=== PATIENT | female | born 1960 | race African-American/Black ===

== ENCOUNTER 2019-09-27 09:58 | Outpatient (CLI) | payer BC ==
[2019-09-27 12:24] LABS: #Basophils 0.1 thou/uL (0.0-0.2); #Eosinphils 0.1 thou/uL (0.0-0.7); #Monocytes 0.5 thou/uL (0.11-0.59); %Basophils 0.8 % (0.0-1.0); %Eosinophils 1.1 % (0.0-10.0); %Lymphocytes 30.7 % (21.0-51.0); %Monocytes 6.9 % (0.0-10.0); %Neutrophils 60.5 % (42.0-75.0); Hemoglobin 13.4 g/dL (12.0-16.0); Mean Corpuscular HGB CONC 31.2 g/dL (32.0-36.0); Mean Corpuscular Hemoglobin 27.6 pg (27.0-31.0); Mean Corpuscular Volume 88.4 fL (78.0-98.0); Mean Platelet Volume 8.1 fL (7.4-10.4); Platelet Count 339 thou/uL (130-400); RBC Distribution Width 11.7 % (11.5-14.5); Red Blood Cell (RBC) Count 4.84 mill/uL (4.20-5.40); White Blood Cell (WBC) Count 6.6 thou/uL (4.8-10.8)
[2019-09-27 12:49] LABS: ALT (SGPT) 7 U/L (8-55); AST (SGOT) 10 U/L (5-34); Alkaline Phosphatase 110 U/L (40-110); Anion Gap 13 mmol/L (10-20); BUN (Urea Nitrogen) 10 mg/dL (9.8-20.1); Bilirubin, Total 0.4 mg/dL (0.2-1.2); Calc. Creatinine Clearance 0 mL/min (70-130); Calcium 9.6 mg/dL (7.8-10.44); Carbon Dioxide 28 mmol/L (23-31); Chloride 104 mmol/L (98-107); Estimated GFR-MDRD Greater than 90; Globulin 3.3 g/dL (2.4-3.5); Glucose 124 mg/dL (80-115); Potassium 3.9 mmol/L (3.5-5.1); Protein, Total 7.3 g/dL (6.0-8.3); Sodium 141 mmol/L (136-145)
== END 2019-09-27 09:59 | disposition home or self-care (01) ==
LOC: LABBT 09:58
PROVIDERS: ATTEND Surgery
DX: Z01.812 Encounter for preprocedural laboratory examination (principal); K80.20 Calculus of gallbladder without cholecystitis without obstruction
CPT/HCPCS: 80053; 85025

== ENCOUNTER 2019-10-05 06:32 | Inpatient (IN) | payer BC ==
[2019-09-27 10:41] VITALS: BMI 43.6
[2019-10-05] MEDS ORDERED: Fentanyl 100 MCG/2 ML VIAL ONE (07:49)
[2019-10-05] MEDS ORDERED: HYDROmorphone 0.5 MG/0.5 ML SYRINGE ONE (07:49)
[2019-10-05] MEDS ORDERED: EPINEPHrine 1 MG/ML AMP ONE (08:00)
[2019-10-05] MEDS ORDERED: Bupivacaine 0.25% HCL 30 ML VIAL ONE ×2 (08:00→08:39)
[2019-10-05] MEDS ORDERED: ceFOXitin 2 GM/50 ML Duplex BAG ONE (08:06)
[2019-10-05] MEDS ORDERED: Lidocaine 1% w/Epinephrine 1:100K 20 ML VIAL ONE (08:39)
[2019-10-05] MEDS ORDERED: Ondansetron PF 4 MG/2 ML Vial ONE (09:38)
[2019-10-05] MEDS ORDERED: Ketorolac Tromethamine 30 MG/ML VIAL ONE (09:38)
[2019-10-05] MEDS ORDERED: Lidocaine 1% PF 5 ML VIAL ONE (09:38)
[2019-10-05] MEDS ORDERED: Glycopyrrolate 0.2 MG/ML 5 ML SYRINGE ONE (09:38)
[2019-10-05] MEDS ORDERED: Rocuronium Bromide 10 MG/ML (10ML VIAL) ONE (09:38)
[2019-10-05] MEDS ORDERED: PROPOFOL 200 MG/20 ML VIAL ONE (09:38)
[2019-10-05] MEDS ORDERED: PHENYLEPHRINE-NS 100 MCG/ML 10 ML SYRINGE ONE (09:38)
[2019-10-05] MEDS ORDERED: Promethazine HCl 25 MG/ML VIAL ONE (10:35)
[2019-10-05] MEDS ORDERED: Promethazine HCl 25 MG/ML VIAL IM PRN ×2 (10:37→11:03)
[2019-10-05] MEDS ORDERED: Ondansetron HCl/PF 4 MG/2 ML Vial IVP PRN (10:37)
[2019-10-05] MEDS ORDERED: PACU-Morphine 4MG/ML VIAL SLOW IVP PRN (10:37)
[2019-10-05] MEDS ORDERED: HYDROmorphone 2 MG/ML VIAL SLOW IVP PRN (10:37)
[2019-10-05] MEDS ORDERED: Promethazine HCl 25 MG/ML VIAL SLOW IVP PRN (10:37)
[2019-10-05] MEDS ORDERED: hydrALAZINE 20 MG/ML VIAL SLOW IVP PRN (11:03)
[2019-10-05] MEDS ORDERED: Morphine 4 MG/ML VIAL SLOW IVP PRN (11:03)
[2019-10-05] MEDS ORDERED: Mag-Al 1200 mg/1200 mg/30 ML UDCUP PO PRN (11:03)
[2019-10-05] MEDS ORDERED: Dextrose 50% Abboject 50 ML SYRINGE SLOW IVP PRN (11:03)
[2019-10-05] MEDS ORDERED: Ondansetron PF 4 MG/2 ML Vial IVP PRN (11:03)
[2019-10-05] MEDS ORDERED: Dextrose 5% in Water 1,000 ML IV PRN (11:03)
[2019-10-05] MEDS ORDERED: traMADol HCl 50 MG TAB PO PRN ×2 (11:03)
[2019-10-05] MEDS ORDERED: Calcium Carbonate 500 MG ChewTAB PO PRN (11:03)
[2019-10-05] MEDS ORDERED: Morphine 2 MG/ML SYRINGE SLOW IVP PRN (11:03)
--- NOTE | 2019-10-05 12:02 | OP ---
DATE OF PROCEDURE: 10/05/2019 PREOPERATIVE DIAGNOSIS: Symptomatic gallstones. POSTOPERATIVE DIAGNOSIS: Symptomatic gallstones. PROCEDURE PERFORMED: Laparoscopic cholecystectomy. COMPLICATION: None. ANESTHESIA: General. ESTIMATED BLOOD LOSS: 300 mL. COMPLICATIONS: None, although control of posterior blood vessel bleeding had to be performed. SPECIMEN: Gallbladder. PROCEDURE IN DETAIL: The patient was taken to the operating room and laid supine on the operating room table. After general anesthetic was obtained, the abdomen was prepped and draped in a sterile fashion. An incision was made above the umbilicus. Cautery was used to dissect down to and score the fascia. Abdominal cavity was entered bluntly using a Jazlyn clamp. Holding stitch of PDS was placed on each side of the fascia. Glenroy trocar was placed. High-flow pneumoperitoneum was obtained. Three right upper quadrant 5 mm ports were placed under direct visualization. The gallbladder was retracted from the gallbladder fossa. There was fairly significant chronic adhesions, then scarring at the base. The peritoneum was opened anteriorly and posteriorly. The critical view of triangle was seen showing only the cystic duct and cystic artery branching medial to lateral and no other branching structures. There was an edge of the liver fold that was stuck to the right side of the gallbladder going up and taking this down, a blood vessel was encountered that was posterior branch of the cystic artery. When this blood vessel retracted and bled, there was significant, but short amount time hook of bleeding. This was controlled using a grasper. Two clips were placed proximally on it and the bleeding was controlled. The critical view of triangle was seen showing only the cystic duct branching from medial to lateral and no other branching structures. Two clips were placed proximally, one distally. Cystic duct was cut using laparoscopic scissors. Cystic artery was taken in the same way. Cautery was used to dissect the gallbladder out of the gallbladder fossa. Gallbladder was placed in EndoCatch bag and brought out through the Meyer. There was fairly significant chronic scarring in the gallbladder bed, which made dissecting the gallbladder out fairly difficult. There was no ongoing bleeding or bile in the liver bed. The right upper quadrant was irrigated using sterile solution. All port sites were infiltrated using local anesthetic. All ports were removed under camera visualization. Pneumoperitoneum was let down. PDS was used to close the fascial defect below the umbilicus. All incisions were irrigated and closed using 4-0 Monocryl and Dermabond. The patient was sent to Recovery in stable condition. All instrument counts, needle counts, and lap counts were correct. Job ID: [id number]
[2019-10-05] MEDS: D5 1/2 NS w/20 mEq KCL 1,000 ML IV SCH (12:35)
[2019-10-05] MEDS ORDERED: Sodium Chloride 0.9% 10 ML ONE (13:23)
[2019-10-05 13:29] LABS: HBSAg Index 0.39 S/CO (0-0.99); HIV (1/2) Antibody/Antigen Non-Reactive (NonReactive); HIV 1/2 INDEX 0.07 S/CO (<1.00); Hep B Surf Ag Non-Reactive S/CO (NonReactive); Hep C IgG Ab Non-Reactive (NonReactive); Hep C Index 0.15 S/CO (0-0.79)
[2019-10-05] MEDS: Famotidine 20 MG TAB PO SCH (20:27)
[2019-10-05] MEDS ORDERED: Lisinopril 10 MG TAB PO SCH (21:00)
[2019-10-06] MEDS: Famotidine/PF 20 mg/2ml Vial SLOW IVP SCH ×2 (04:31→10:15)
[2019-10-06] MEDS: D5 1/2 NS w/20 mEq KCL 1,000 ML IV SCH (04:31)
[2019-10-06 05:49] LABS: #Lymphocytes 1.4 thou/uL (1.20-3.40); #Monocytes 0.6 thou/uL (0.11-0.59); %Basophils 0.2 % (0.0-1.0); %Eosinophils 0.3 % (0.0-10.0); %Lymphocytes 15.5 % (21.0-51.0); %Monocytes 6.9 % (0.0-10.0); %Neutrophils 77.1 % (42.0-75.0); Hemoglobin 11.6 g/dL (12.0-16.0); Mean Corpuscular HGB CONC 32.7 g/dL (32.0-36.0); Mean Corpuscular Volume 88.6 fL (78.0-98.0); Mean Platelet Volume 7.5 fL (7.4-10.4); Platelet Count 258 thou/uL (130-400); RBC Distribution Width 11.7 % (11.5-14.5); White Blood Cell (WBC) Count 9.1 thou/uL (4.8-10.8)
[2019-10-06 06:19] LABS: ALT (SGPT) 93 U/L (8-55); AST (SGOT) 144 U/L (5-34); Albumin 3.4 g/dL (3.4-4.8); Alkaline Phosphatase 359 U/L (40-110); Anion Gap 7 mmol/L (10-20); BUN (Urea Nitrogen) 8 mg/dL (9.8-20.1); Bilirubin, Total 0.5 mg/dL (0.2-1.2); Calc. Creatinine Clearance 145 mL/min (70-130); Calcium 8.5 mg/dL (7.8-10.44); Carbon Dioxide 30 mmol/L (23-31); Chloride 103 mmol/L (98-107); Estimated GFR-MDRD Greater than 90; Glucose 182 mg/dL (80-115); Potassium 3.6 mmol/L (3.5-5.1); Protein, Total 6.4 g/dL (6.0-8.3); Sodium 136 mmol/L (136-145)
[2019-10-06 07:54] VITALS: BP 130/63; TEMP 98.5
--- NOTE | 2019-10-06 10:01 | DIS ---
DATE OF ADMISSION: 10/05/2019 DATE OF DISCHARGE: 10/05/2019 ADMITTING DIAGNOSIS: Acute cholecystitis. DISCHARGE DIAGNOSIS: Acute cholecystitis. PROCEDURE PERFORMED: Laparoscopic cholecystectomy by Dr. Longoria without complication. CONDITION ON DISCHARGE: Improved. STAFF: Dakota Longoria MD HOSPITAL COURSE: See hospital chart for details of hospitalization. Job ID: [id number]
[2019-10-06] MEDS: Famotidine 20 MG TAB PO SCH (10:16)
--- NOTE | 2019-10-09 08:06 | PQF ---
MOIZ SANDOVAL BRYAN DAVID MD [id number] [facility] [id number] CLINICAL DOCUMENTATION CLARIFICATION FORM: POST DISCHARGE Addendum to original discharge summary date: ____ Late entry note date: __ DATE: 10/09/2019 ATTN: ANH PONCE MD Please exercise your independent, professional judgment in responding to the clarification form. Clinical indicators are provided on the bottom of this form for your review Please check appropriate box(s): BMI > 40 with associated diagnosis of: (check one) [ ] Morbid (Severe) Obesity [ ] Due to excess calories [ ] with Alveolar Hypoventilation (Pickwickian syndrome) [ ] Overweight [ ] Obesity [ ] Other diagnosis [ X ] Unable to determine For continuity of documentation, please document condition throughout progress notes and discharge summary. Thank You. BMI < 18.5Under weight = 18.5 - 24.9Healthy = 25.0 - 29.9Slightly Overweight = 30.0 - 34.9Obese/Class I = 35.0 - 39.9Severely Obese/Class II = 40.0 and OverMorbidly Obese/Class III CLINICAL INDICATORS - SIGNS / SYMPTOMS / LABS -Calculated BMI: 43.6- FNS assessment -Height: 1.6m- - FNS assessment -Current weight: 111.674kg- - FNS assessment RISK FACTORS -Acute cholecystitis- , 10/05, ANH PONCE MD TREATMENTS: - Sodium chloride.IV- 10/05 (This form is maintained as a part of the permanent medical record) 2014 [employer] All Rights Reserved [email or web address]
== END 2019-10-06 11:51 | disposition home or self-care (01) | DRG 419 ==
LOC: SDC 06:32 → 3SE 10:59
PROVIDERS: ADMIT Surgery; ATTEND Surgery
PROC: 0FT44ZZ Resection of Gallbladder, Percutaneous Endoscopic Approach (ICD-10-PCS; principal; 2019-10-05)
DX: K80.20 Calculus of gallbladder without cholecystitis without obstruction (principal); E11.9 Type 2 diabetes mellitus without complications; K80.50 Calculus of bile duct without cholangitis or cholecystitis without obstruction; Z88.2 Allergy status to sulfonamides; Z88.8 Allergy status to other drugs, medicaments and biological substances; Z98.51 Tubal ligation status; Z79.4 Long term (current) use of insulin
CPT/HCPCS: 36415; 36416; 80053; 85025; 86803; 87340; 87389; 88304; J0171; J0694; J1170; J1885; J2001; J2405; J2550; J2704; J3010; S0020

== ENCOUNTER 2022-05-20 00:29 | Observation (INO) | payer BC ==
[2022-05-20] MEDS ORDERED: Dextrose 50% Abboject 50 ML SYRINGE SLOW IVP PRN (01:58)
[2022-05-20] MEDS ORDERED: Dextrose 5% in Water 1,000 ML IV PRN (01:58)
[2022-05-20] MEDS ORDERED: HumaLOG 300 UNITS/3 ML VIAL SC PRN (01:58)
[2022-05-20 02:12] VITALS: BMI 43.0
[2022-05-20] MEDS ORDERED: Acetaminophen 650 MG Suppository PR PRN (02:44)
[2022-05-20] MEDS ORDERED: Ondansetron ODT 4 MG TAB PO PRN (02:44)
[2022-05-20] MEDS ORDERED: Ondansetron PF 4 MG/2 ML Vial IVP PRN (02:44)
[2022-05-20] MEDS ORDERED: Insulin Glargine 30 UNITS/0.3 ML VIAL SC SCH ×3 (02:52→21:00)
[2022-05-20] MEDS ORDERED: Albuterol Sulfate 2.5 mg/3 ml Neb NEB PRN (02:53)
[2022-05-20] MEDS ORDERED: Rivaroxaban 15 MG TAB ONE (04:38)
[2022-05-20 05:29] LABS: SARS-CoV-2 NAA Rapid Test Not Detected (NotDetected)
[2022-05-20] MEDS: Sodium Chloride 0.9% 1,000 ML IV SCH ×2 (05:31→15:00)
[2022-05-20] MEDS: HumaLOG 300 UNITS/3 ML VIAL SC PRN ×3 (05:32→15:07)
[2022-05-20 06:01] LABS: #Eosinphils 0.1 thou/uL (0.0-0.7); #Lymphocytes 2.7 thou/uL (1.20-3.40); #Monocytes 0.6 thou/uL (0.11-0.59); #Neutrophils 4.9 thou/uL (1.40-6.50); %Basophils 0.4 % (0.0-1.0); %Eosinophils 1.4 % (0.0-10.0); %Monocytes 7.1 % (0.0-10.0); %Neutrophils 59.1 % (42.0-75.0); Hemoglobin 11.1 g/dL (12.0-16.0); Mean Corpuscular HGB CONC 33.9 g/dL (32.0-36.0); Mean Corpuscular Hemoglobin 29.6 pg (27.0-31.0); Mean Corpuscular Volume 87.5 fL (78.0-98.0); Platelet Count 253 thou/uL (130-400); RBC Distribution Width 11.1 % (11.5-14.5); Red Blood Cell (RBC) Count 3.74 mill/uL (4.20-5.40); White Blood Cell (WBC) Count 8.4 thou/uL (4.8-10.8)
[2022-05-20] MEDS: Acetaminophen 325 MG TAB PO PRN ×2 (06:08→15:00)
[2022-05-20 06:29] LABS: Anion Gap 13 mmol/L (10-20); BUN (Urea Nitrogen) 33 mg/dL (9.8-20.1); Calc. Creatinine Clearance 74 mL/min (70-130); Carbon Dioxide 26 mmol/L (23-31); Chloride 97 mmol/L (98-107); Estimated GFR 44; Glucose 518 mg/dL (80-115); Potassium 3.6 mmol/L (3.5-5.1); Sodium 132 mmol/L (136-145)
[2022-05-20] MEDS ORDERED: Losartan/Hydrochlorothiazide 100 mg/25 mg Tablet PO SCH (09:00)
[2022-05-20] MEDS ORDERED: Montelukast Sodium 10 mg Tablet PO SCH (09:00)
[2022-05-20 15:16] VITALS: BP 136/82; TEMP 97.9
[2022-05-20] MEDS ORDERED: Lisinopril 10 MG TAB PO SCH (21:00)
[2022-05-21] MEDS ORDERED: Insulin Glargine 30 UNITS/0.3 ML VIAL SC SCH (21:00)
== END 2022-05-20 17:51 | disposition home or self-care (01) ==
LOC: SURG A 01:22
PROVIDERS: ADMIT Internal Medicine; ATTEND Internal Medicine
DX: E11.65 Type 2 diabetes mellitus with hyperglycemia (principal); R53.1 Weakness; E11.40 Type 2 diabetes mellitus with diabetic neuropathy, unspecified; J45.909 Unspecified asthma, uncomplicated; I10 Essential (primary) hypertension; E66.01 Morbid (severe) obesity due to excess calories; Z68.41 Body mass index [BMI] 40.0-44.9, adult; Z91.14 Patient's other noncompliance with medication regimen; Z79.4 Long term (current) use of insulin; Z79.899 Other long term (current) drug therapy; Z88.2 Allergy status to sulfonamides; Z88.5 Allergy status to narcotic agent; Z91.018 Allergy to other foods; Z20.822 Contact with and (suspected) exposure to COVID-19
CPT/HCPCS: 36415; 36416; 80048; 85025; G0378; J1815; J7050; U0002